=== PATIENT | female | born 1985 | race Caucasian/White ===

== ENCOUNTER 2016-06-30 11:21 | Emergency (ER) | payer BC, OTHER ==
[2016-06-30 13:08] VITALS: BP 116/68
--- NOTE | 2016-06-30 13:28 | UC ---
Throat Pain/Nasal Chuck HPI - HPI Summary HPI Summary: Noticed irritated sensation in L throat 3 days ago, feels slight FB sensation. Looked and saw white spot on L tonsil. Denies pain, fever, vomiting, or rash. - History of Current Complaint Chief Complaint: UCRespiratory Stated Complaint: WHITE SPOTS ON TONSILS Time Seen by Provider: 06/30/16 13:08 Hx Obtained From: Patient Hx Last Menstrual Period: 06/23/16 ?: No Onset/Duration: Gradual Onset, Lasting Days Severity: Mild Cough: None Associated Signs & Symptoms: Negative: Sinus Discomfort, Nasal Discharge, Fever , Vomiting, Rash - Allergies/Home Medications Allergies/Adverse Reactions: Allergies Allergy/AdvReac Type Severity Reaction Status Date / Time BEES Allergy Severe See Comment Uncoded 07/28/13 17:43 PMH/Surg Hx/FS Hx/Imm Hx Previously Healthy: Yes Respiratory History Of: Reports: Asthma - Surgical History Surgical History: None - Family History Known Family History: Positive: Hypertension - Social History 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 [employer] Alcohol Use: Occasionally Substance Use Type: None Smoking Status (MU): Never Smoked Tobacco Review of Systems Constitutional: Negative Skin: Negative Eyes: Negative ENT: Other - spot in throat Respiratory: Negative Cardiovascular: Negative Gastrointestinal: Negative Genitourinary: Negative Motor: Negative Neurovascular: Negative Musculoskeletal: Negative Neurological: Negative Psychological: Negative All Other Systems Reviewed And Are Negative: Yes Physical Exam Triage Information Reviewed: Yes Appearance: Well-Appearing, No Pain Distress, Well-Nourished Vital Signs: Initial Vital Signs Temp 98.1 F 06/30/16 13:04 Pulse 73 06/30/16 13:04 Resp 18 06/30/16 13:04 BP 116/68 06/30/16 13:04 Pulse Ox 99 06/30/16 13:04 Vital Signs Reviewed: Yes Eye Exam: Normal Eyes: Positive: Conjunctiva Clear ENT: Positive: Hearing grossly normal, TMs normal, Other: - white spot on L tonsil. Able to remove bulk of it with tongue depresser and throat swab, pt brad well.. Negative: Tonsillar swelling, Tonsillar exudate Dental Exam: Normal Neck exam: Normal Neck: Positive: Supple, Nontender, No Lymphadenopathy Respiratory Exam: Normal Respiratory: Positive: Chest non-tender, Lungs clear, Normal breath sounds, No respiratory distress, No accessory muscle use Cardiovascular Exam: Normal Cardiovascular: Positive: RRR, No Murmur Musculoskeletal Exam: Normal Neurological Exam: Normal Psychological Exam: Normal Skin Exam: Normal Throat Pain/Nasal Course/Dx - Differential Dx/Diagnosis Provider Diagnoses: tonsillolith Discharge - Discharge Plan Condition: Stable Disposition: HOME Referrals: [facility] [Outside] Additional Instructions: The white substance is a mix of skin cells, food, and bacteria. These are commonly found in the pits or holes in tonsils called "crypts." When they stay for a long time and harden they are sometimes called tonsilloliths. Generally, these are not harmful and don't need any particular treatment.
== END 2016-06-30 13:44 | disposition home or self-care (01) ==
LOC: UCEAST 11:21
DX: J35.8 Other chronic diseases of tonsils and adenoids (principal)
CPT/HCPCS: 87651; 99211; G0463

== ENCOUNTER 2019-02-17 11:09 | Inpatient (IN) | payer BC, OTHER ==
[2019-02-17] MEDS ORDERED: Buffered Lidocaine 1% SYRIN* 1 ML/SYRINGE INTRADERM ONE (12:02)
[2019-02-17] MEDS ORDERED: Lactated Ringers 1000 ML Bag* 1,000 ML IV ONE (12:02)
[2019-02-17] MEDS ORDERED: Dinoprostone* 10 MG VAG.SUPP VAGINAL ONE (12:02)
--- NOTE | 2019-02-17 12:11 | HP ---
General Information - Reason for Visit @39wks, GHTN, not severe - General Information Maternal Age: 33 Grav: 1 Para: 0 SAB: 0 IEA: 0 Estimated Due Date: 02/24/19 Determined By: LMP Maternal Blood Type and Rh: O Positive - Results this Serology/RPR Result: Non-Reactive Rubella Result: Immune HBsAg Result: Negative HIV Result: Negative GBS Culture Result: Negative Past Medical History Pertinent Past Medical History: Non-Contributory Pertinent Past Surgical History: See Records Pertinent Family History: Non-Contributory - Antepartal Records Antepartal Records: Reviewed, Complicated by: - GHTN, no e/o PEC Review of Systems Constitutional: Comfortable CV Complaint: No Respiratory: Shortness of Breath: No Gastrointestinal: No Nausea/Vomiting, Normal Bowel Movement Genitourinary: No Dysuria, No Bleeding, No Leaking Fluid Musculoskeletal: No Complaint Neurological: No Headache, No Visual Changes Movement: Normal Exam Allergies/Adverse Reactions: Allergies BEES Allergy (Severe, Uncoded 02/17/19 11:25) See Comment PT HAS HX REACTION, WENT THROUGH DESENSITIZATION TREATMENT AND NOW HAS NO PROBLEMS BUT CARRIES AN EPI-PEN. - Measurements Height: 5 ft 1 in Weight: 155 lb Weight in lbs: [id number] Body Mass Index (BMI): 29.2 Pre- Weight: 115 lb Weight Gained This : 40 lbs and 0 ozs - Exam Breast: Breast Exam Deferred Extremities: No Edema Heart: Normal Rhythm/Heart Sounds HEENT: No Significant Findings - Abdominal Exam Abdomen Exam: Non-Tender - Ultrasound/Biophysical Profile Ultrasound Status: Not Done Biophysical Profile: Normal Amniotic Fluid, Normal Gross Body Movements, Normal Muscle Tone, Normal Breathing, Normal Reactive NST Targeted Exam Findings Cervical Exam: Closed Membrane Status: Intact EFM Findings - External Monitor Findings Baseline Heart Rate: 140 External Monitor Findings: Accelerations Present, No Pattern of Variable or Late Decelerations, Variability Moderate, Baseline Stable Contractions: Irregular Assessment/Plan - Assessment @39wks here for induction for GHTN. No e/o PEC. - Obstetrical Risk Factors Obstetrical Risk Factors: Gestational Hypertension - Plan Plan: Induction, Cervical Ripening
[2019-02-17 13:46] LABS: Urine Benzodiazepine Screen None Detected (None Detect); Urine Opiates Screen None Detected (None Detect)
[2019-02-17 14:58] LABS: ABS Eosinophils 0.2 10^3/ul (0-0.6); ABS Lymphocytes 1.9 10^3/ul (1.0-4.8); ABS Monocytes 0.8 10^3/ul (0-0.8); ABS Neutrophils 10.6 10^3/ul (1.5-7.7); Eosinophil % 1.4 %; Hematocrit 35 % (35-47); Hemoglobin 11.2 g/dL (12.0-16.0); Mean Corpuscular HGB Conc 32 g/dL (31-36); Mean Corpuscular Hemoglobin 27 pg (27-31); Mean Corpuscular Volume 83 fL (80-97); Platelet Count 211 10^3/uL (150-450); Red Blood Count 4.21 10^6 /uL (3.70-4.87); Red Cell Distribution Width 17 % (10-15); White Blood Count 13.5 10^3/uL (3.5-10.8)
[2019-02-17 15:11] LABS: Albumin 3.3 g/dL (3.2-5.2); Albumin/Globulin Ratio 1.1 (1-3); BUN/Creatinine Ratio 13.6 (8-20); Calcium 8.8 mg/dL (8.6-10.3); EGFR African American 143.9 (>60); EGFR Non-African American 118.9 (>60); Potassium 3.7 mmol/L (3.5-5.0); Total Bilirubin 0.3 mg/dL (0.2-1.0); Total Protein 6.3 g/dL (6.4-8.9)
--- NOTE | 2019-02-17 16:32 | PN ---
Progress Note - Progress Note Date of Service: 02/17/19 Note: Pt's cervix is very posterior and exam not tolerated well. Cervidil placed in posterior fornix @ ~14:00. FHT reactive.
--- NOTE | 2019-02-18 09:05 | PN ---
Progress Note - Progress Note Date of Service: 02/18/19 Note: S: Patient feeling well, not feeling any contractions, slept overnight. Denies SANCHEZ, N/V. O: VE: FT/soft 60%/vtx -1 UCs q 5-6 min FHT 135, +accels, no decels, mod cristine VSS, afebrile A: IUP @ 39+1 weeks gestation for induction of labor for HTN IBOW No evidence metabolic acidemia P: Due to patient discomfort with vaginal exams, will plan misoprostal for continued cervical ripening. PARQ discussion and patient in agreement. Up to 3 doses planned with monitoring per protocol. Consider pitocin vs Cook's catheter with cervical change. Anticipate SVB.
[2019-02-18] MEDS: Misoprostol TAB* 100 MCG PO ONE ×3 (09:12→18:16)
--- NOTE | 2019-02-18 18:21 | PN ---
Progress Note - Progress Note Date of Service: 02/18/19 Note: S: Patient still comfortable, reports mild cramps. Ambulating on unit, ctx slightly stronger when walking. O: VE deferred FHT 130, Cat 1 VSS, afebrile UCs q 2-6 min, mild A: IUP @ 39+1 weeks for induction for IUGR, GHTN IBOW No evidence metabolic acidemia P: Discussed ongoing ripening after 3rd dose misoprostal vs rest. Patient undecided and will defer to VE after next dose unless active contractions have started.
[2019-02-18] MEDS ORDERED: Promethazine INJ(RESTRICTED)* 25 MG/ML 1 ML VIAL IV PRN (23:08)
[2019-02-18] MEDS ORDERED: Nalbuphine* 10 MG/ML 1 ML VIAL IV PRN (23:08)
--- NOTE | 2019-02-18 23:26 | PN ---
Progress Note - Progress Note Date of Service: 02/18/19 Note: S: Patient reports mild continued cramping but overall still very comfortable. Would like to talk about options for continued cervical ripening/induction overnight. O: VE 1.5cm/90/-1 UCs q 2-5 min FHT 140 via doppler VSS, afebrile A: IUP @39+1 for induction P: PARQ discussion of Cook's cath for ripening vs cervidil vs rest. Patient opting to try Cooks. Nubain/phenergan ordered if desired.
[2019-02-18] MEDS ORDERED: Acetaminophen TAB* 325 MG PO PRN (23:28)
[2019-02-19] MEDS ORDERED: Oxytocin in LR* 20 UNITS/1,000 ML BAG IVPB SCH ×2 (08:00→22:00)
[2019-02-19] MEDS: Lactated Ringers 1000 ML Bag* 1,000 ML IV SCH ×2 (08:30→10:24)
[2019-02-19] MEDS ORDERED: OBEPIDURAL* 250 ML EPIDURAL ONE (14:38)
--- NOTE | 2019-02-19 19:17 | PROCNOTE ---
[facility]: Delivery Note - Delivery A Date of : 02/19/19 Time of : 17:53 Weight at : 7 lb 2 oz Score 1 Minute: 9 Score 5 Minutes: 9 Gestational Age in Weeks and Days at Delivery: 39 Weeks and 2 Days Delivery Method: Spontaneous Vaginal Labor: Induced Did Patient attempt ?: N/A, No Previous Amniotic Fluid: Clear Estimated Blood Loss: 300 Anesthesia/Analgesia: CEI for Labor Delivered By: Jose Cruz Sheppard - Nursery Level of Nursery: Regular/Bedside - Perineum Perineal Injury: Vaginal Laceration - right sulcus 4 cm, 2nd Degree Perineal Injury Comment: c right sulcus tear Perineal Repair: By Delivering Practioner - Events Delivery Events of Note: Pitocin During Labor, Post- Bleeding - Meds Given Delivery Events of Note Comment: pt pushed well x 29 minutes with steady descent and delivery. repair with 3-0 vicryl sans complication - Risk for Falls Delivered OB Patient- Risk for Falls: Heavy Bleeding - cytotec given Fall Risk: Patient is at High Risk for Falls
[2019-02-19] MEDS ORDERED: Dibucaine 1% 28.35 GM TUBE ONE (19:51)
[2019-02-19] MEDS ORDERED: Witch Hazel PAD* JAR ONE (19:51)
[2019-02-19] MEDS ORDERED: Ibuprofen TAB* 600 MG ONE (20:48)
[2019-02-19] MEDS ORDERED: Acetaminophen TAB* 325 MG PO PRN (21:54)
[2019-02-19] MEDS ORDERED: Witch Hazel PAD* JAR TOPICAL PRN (21:54)
[2019-02-19] MEDS ORDERED: Dibucaine 1% 28.35 GM TUBE PR PRN (21:54)
[2019-02-19] MEDS ORDERED: Glycerin ADULT SUPP PR PRN (21:54)
[2019-02-19] MEDS ORDERED: Lactated Ringers 1000 ML Bag* 1,000 ML IV SCH (22:00)
[2019-02-20 07:26] LABS: ABS Basophils 0.1 10^3/ul (0-0.2); ABS Eosinophils 0.2 10^3/ul (0-0.6); ABS Monocytes 0.8 10^3/ul (0-0.8); ABS Neutrophils 11.5 10^3/ul (1.5-7.7); Eosinophil % 1.3 %; Hematocrit 28 % (35-47); Hemoglobin 9.6 g/dL (12.0-16.0); Lymphocyte % 13.8 %; Mean Corpuscular HGB Conc 34 g/dL (31-36); Mean Corpuscular Hemoglobin 28 pg (27-31); Mean Corpuscular Volume 82 fL (80-97); Mean Platelet Volume 9.4 fL (7.4-10.4); Platelet Count 178 10^3/uL (150-450); Red Blood Count 3.47 10^6 /uL (3.70-4.87); Red Cell Distribution Width 18 % (10-15); White Blood Count 14.6 10^3/uL (3.5-10.8)
[2019-02-20] MEDS ORDERED: Simethicone TAB* 80 MG TAB.CHEW PO SCH (08:30)
[2019-02-20] MEDS: Ferrous Gluconate TAB* 324 MG TAB PO SCH ×2 (09:01→20:51)
[2019-02-20] MEDS: Docusate CAP* 100 MG PO SCH ×3 (09:01→20:51)
[2019-02-20] MEDS: Ibuprofen TAB* 600 MG PO PRN (20:52)
[2019-02-21 08:32] VITALS: BP 119/73
[2019-02-21] MEDS: Docusate CAP* 100 MG PO SCH (08:34)
[2019-02-21] MEDS: Ferrous Gluconate TAB* 324 MG TAB PO SCH (08:34)
[2019-02-21] MEDS: Ibuprofen TAB* 600 MG PO PRN (12:33)
[2019-02-21] MEDS ORDERED: Labetalol TAB* 200 MG PO SCH (13:00)
== END 2019-02-21 13:45 | disposition home or self-care (01) | DRG 560 ==
LOC: MCHOBOUT 11:09 → MCHOB 11:53
PROVIDERS: ADMIT Obstetrics & Gynecology; ATTEND Obstetrics & Gynecology
PROC: 10E0XZZ Delivery of Products of Conception, External Approach (ICD-10-PCS; principal; 2019-02-19)
PROC: 10907ZC Drainage of Amniotic Fluid, Therapeutic from Products of Conception, Via Natural or Artificial Opening (ICD-10-PCS; 2019-02-19)
PROC: 3E0P7VZ Introduction of Hormone into Female Reproductive, Via Natural or Artificial Opening (ICD-10-PCS; 2019-02-19)
PROC: 3E033VJ Introduction of Other Hormone into Peripheral Vein, Percutaneous Approach (ICD-10-PCS; 2019-02-19)
PROC: 0U7C7ZZ Dilation of Cervix, Via Natural or Artificial Opening (ICD-10-PCS; 2019-02-19)
PROC: 4A1HXCZ Monitoring of Products of Conception, Cardiac Rate, External Approach (ICD-10-PCS; 2019-02-19)
PROC: 0KQM0ZZ Repair Perineum Muscle, Open Approach (ICD-10-PCS; 2019-02-19)
DX: O13.4 Gestational [pregnancy-induced] hypertension without significant proteinuria, complicating childbirth (principal); Z37.0 Single live birth; O70.1 Second degree perineal laceration during delivery; O36.5930 Maternal care for other known or suspected poor fetal growth, third trimester, not applicable or unspecified; O72.1 Other immediate postpartum hemorrhage; O99.03 Anemia complicating the puerperium; Z3A.39 39 weeks gestation of pregnancy; Z91.030 Bee allergy status
CPT/HCPCS: 36415; 80053; 80307; 85025; 86850; 86900; 86901; A9270-GY; S0191

== ENCOUNTER 2019-02-23 07:33 | Emergency (ER) | payer BC, OTHER ==
--- NOTE | 2019-02-23 07:39 | UC ---
Eye Complaint HPI - HPI Summary HPI Summary: Patient is33 year old , who present today to the urgent care withright eye redness since yesterday. There is associated yellowish discharge. No sick contacts . No skin rash. Denies any possible exposure. Denies any fever, chills, cough chest pain or shortness of breath . Denies any abdominal pain , nausea or vomiting , diarrhea or constipation. Patient tried over the counter medication without much relief. She just got discharged from the hospital, gave to her first child him 5 days ago. Denies any symptoms and her child/ She has hemorrhoids and using dibucaine 1% (given at discharge from the hospital )and requesting a refill for the same - History of Current Complaint Stated Complaint: RT EYE COMP Time Seen by Provider: 02/23/19 07:35 Hx Obtained From: Patient Hx Last Menstrual Period: 06/23/16 - Allergies/Home Medications Allergies/Adverse Reactions: Allergies Allergy/AdvReac Type Severity Reaction Status Date / Time bee pollen Allergy See Comment Verified 02/23/19 07:42 bee venom protein (honey bee) Allergy See Comment Verified 02/23/19 07:42 PMH/Surg Hx/FS Hx/Imm Hx - Additional Past Medical History Additional PMH: Past Medical History : Asthma Past Surgical History: No Past History of Procedure Family History : non contributory Social History : No alcohol, non smoker, no drug use. Previously Healthy: Yes - Surgical History Surgical History: None - Family History Known Family History: Positive: Hypertension, Non-Contributory - Social History Alcohol Use: Occasionally Substance Use Type: None Smoking Status (MU): Never Smoked Tobacco - Immunization History Most Recent Influenza Vaccination: Fall 2017 Most Recent Pneumonia Vaccination: none Review of Systems All Other Systems Reviewed And Are Negative: Yes Constitutional: Positive: Negative Skin: Positive: Negative Eyes: Positive: Drainage, Eye Redness. Negative: Blurred Vision, Diplopia, Photophobia ENT: Positive: Negative Respiratory: Positive: Negative Cardiovascular: Positive: Negative Gastrointestinal: Positive: Negative Genitourinary: Positive: Negative Motor: Positive: Negative Neurovascular: Positive: Negative Musculoskeletal: Positive: Negative Neurological: Positive: Negative Psychological: Positive: Negative Is Patient Immunocompromised?: No Physical Exam - Summary Physical Exam Summary: Vital Signs Reviewed: Yes A+Ox3, no distress Eyes: Right eye with mild erythema and and yellowish discharge noted at the pedal canthus. EOMI and PERRLA intact and pain-free. No periorbital swelling is noted ENT: Hearing grossly normal neck: supple Respiratory: Positive: No respiratory distress, No accessory muscle use Cardiovascular: skin color reflect adequate perfusion Musculoskeletal Exam: COLLINS x 4 without difficulty Neurological: Positive: Alert, ambulatory without difficulty Psychological: Positive: Normal Response To Family Skin: Positive: no rash, no ecchymosis Triage Information Reviewed: Yes Vital Signs Reviewed: Yes Eye Complaint Course/Dx - Course Course Of Treatment: During the visit today, we discussed the findings and further plan to treat it with antibiotic. I will prescribe the medication to the pharmacy . She is running out of dibucaine 1% ointment for hemorrhoids that she was given at the hospital, I prescribed it to the pharmacy. Patient expressed understanding . - Differential Dx/Diagnosis Provider Diagnosis: Conjunctivitis of right eye Discharge ED - Sign-Out/Discharge Documenting (check all that apply): Patient Departure All imaging exams completed and their final reports reviewed: No Studies - Discharge Plan Condition: Stable Disposition: HOME Prescriptions: Dibucaine 1% OINT* [Nupercainal 1% oint*] 1 applic TOPICAL Q6H PRN 7 Days #1 tu PRN Reason: Pain - Mild Erythromycin OPTH OINT* [Erythromycin 0.5% OPTH OINT*] 1 applic RIGHT EYE Q6H 5 Days #1 ophth.oint Patient Education Materials: Conjunctivitis (ED) Referrals: Jony Chakraborty MD [Primary Care Provider] - Additional Instructions: Please start using eye drops as prescribed to the pharmacy . Follow up with ophthalmology in 3 to 5 days if no better. Return to Urgent care / ER if symptoms get worse. - Billing Disposition and Condition Condition: STABLE Disposition: Home
[2019-02-23 07:42] VITALS: BP 120/77
== END 2019-02-23 08:17 | disposition home or self-care (01) ==
LOC: UCEAST 07:33
DX: H10.9 Unspecified conjunctivitis (principal)
CPT/HCPCS: 99212; G0463